=== PATIENT | female | born 1980 | race Caucasian/White ===

== ENCOUNTER → 2017-08-25 16:46 | Outpatient (CLI) | payer OTHER, SELFPAY ==
[2017-08-25 17:18] LABS: Hematocrit 38.9 % (37-47); Hemoglobin 12.7 g/dl (12.0-15.0); Mean Corp Hgb Conc 32.6 g/gl (32-36); Mean Platelet Vol. 8.9 fl (6.2-12.0); Platelet Count 292 K/mm3 (150-450); RBC Distribution Width CV 12.7 % (11.6-14.6); RBC Distribution Width SD 42.9 fl (35.1-43.9); Red Blood Count 4.23 M/mm3 (4.2-5.4); White Blood Count 5.9 K/mm3 (4.4-11.0)
[2017-08-25 17:19] LABS: Absolute Lymphocyte Count 2.33 X10^3/ul (0.83-4.51); Absolute Neutrophil Count 2.9 X10^3/uL (2.0-7.7); Basophil% 0.2 % (0-1); Eosinophils% 3.6 % (0-5); Lymphocyte # 2.33 X10^3/ul (4.0); Lymphocyte % 39.8 % (19-41); Monocyte% 6.2 % (0-10); Neutrophil # 2.93 X10^3/uL (2.7-7.7); POSITIVE COUNT NO; POSITIVE DIFFERENTIAL NO; POSITIVE MORPHOLOGY NO
[2017-08-25 17:20] LABS: Basophil# 0.01 X10^3/uL; Eosinophil# 0.21 X10^3/uL; Monocyte# 0.36 X10^3/uL
[2017-08-25 18:03] LABS: ALB/GLOB Ratio 0.9 RATIO (0.9-2.4); AST(SGOT) 17 U/L (15-37); Alanine Aminotransfer ALT/SGPT 30 U/L (13-56); Albumin, Serum 3.6 g/dL (3.2-5.0); Alkaline Phosphatase 49 U/L (45-117); Anion Gap 6 (5-15); BUN 13 mg/dL (7-18); BUN/Creat Ratio 18.3 RATIO (10-20); Calcium,Total 8.3 mg/dL (8.5-10.1); Chloride 104 mmol/L (98-107); Creatinine, Serum 0.71 mg/dL (0.55-1.02); EST Glomerular Filtration Rate 99 mL/min (>60); Est Glom Filt Rate - Afr Amer 120 mL/min (>60); Ferritin 102 ng/mL (8-252); Globulin 3.9 g/dL (2.2-4.2); Glucose 90 mg/dL (74-106); Iron 90 ug/dL (50-170); Potassium 3.6 mmol/L (3.5-5.1); Protein, Total 7.5 g/dL (6.4-8.2); Sodium Level 138 mmol/L (136-145); T4 Free Direct 0.98 ng/dL (0.76-1.46); Thyroid Stim Hormone (TSH) 1.35 uIU/mL (0.358-3.74)
== END ==
PROVIDERS: Family Provider Family Medicine; PCP Family Medicine; Visit Provider Family Medicine
DX: R53.83 Other fatigue (principal); B02.9 Zoster without complications; G47.9 Sleep disorder, unspecified; G25.81 Restless legs syndrome
CPT/HCPCS: 36415; 80053; 82306; 82728; 83540; 84439; 84443; 85025